=== PATIENT | female | born 1975 | race Caucasian/White ===

== ENCOUNTER 2018-05-10 04:55 | Emergency (ER) | payer MEDICAID ==
[~2018-05-10] VITALS: Ht 180.3 cm; Wt 161.9 kg
[2018-05-10 05:01] VITALS: BP 131/88
[2018-05-10] MEDS ORDERED: KETOROLAC 60 MG/2 ML VIAL IM ONE (05:15)
[2018-05-10] MEDS ORDERED: HYDROcodone/APAP 10/325 MG 1 TAB TAB PO ONE (05:15)
[2018-05-10 06:20] VITALS: BP 139/84
[2018-05-10 06:24] LABS: APPEARANCE,URINE CLEAR (CLEAR); COLOR,URINE YELLOW (YELLOW); UGLUCOSE NEGATIVE (NEGATIVE)
[2018-05-10 06:25] LABS: BILIRUBIN,URINE NEGATIVE (NEGATIVE); BLOOD, URINE NEGATIVE (NEGATIVE); LEUKOCYTE ESTERASE ,URINE NEGATIVE (NEGATIVE); NITRITE, URINE NEGATIVE (NEGATIVE); RBC,URINE 0-5 (RARE) /HPF (0-5); WBC,URINE 0-5 (RARE) /HPF (0-5)
== END 2018-05-10 06:20 | disposition home or self-care (01) ==
LOC: MED 04:55
DX: G89.29 Other chronic pain (principal); M54.5 Low back pain
CPT/HCPCS: 81001; 81025; 96372; 99283; J1885

== ENCOUNTER 2018-05-18 09:48 | Emergency (ER) | payer MEDICAID ==
[~2018-05-18] VITALS: Ht 180.3 cm; Wt 131.5 kg
[2018-05-18 10:05] VITALS: BP 147/117
== END 2018-05-18 11:10 | disposition home or self-care (01) ==
LOC: MED 09:48
DX: G89.29 Other chronic pain (principal); M54.6 Pain in thoracic spine; M54.5 Low back pain; I10 Essential (primary) hypertension; E78.5 Hyperlipidemia, unspecified
CPT/HCPCS: 99283

== ENCOUNTER 2019-03-26 14:32 | Emergency (ER) | payer MEDICAID ==
[~2019-03-26] VITALS: Ht 175.3 cm; Wt 160.6 kg
[2019-03-26 14:34] VITALS: BP 115/93
[2019-03-26] MEDS ORDERED: KETOROLAC 60 MG/2 ML VIAL IM ONE (14:45)
[2019-03-26 15:22] VITALS: BP 121/81
== END 2019-03-26 15:22 | disposition home or self-care (01) ==
LOC: MED 14:32
DX: J06.9 Acute upper respiratory infection, unspecified (principal); M54.9 Dorsalgia, unspecified; G89.29 Other chronic pain; I10 Essential (primary) hypertension; E78.00 Pure hypercholesterolemia, unspecified; Z98.890 Other specified postprocedural states
CPT/HCPCS: 96372; 99283; J1885

== ENCOUNTER 2019-04-25 11:03 | Emergency (ER) | payer MEDICAID ==
[~2019-04-25] VITALS: Ht 180.3 cm; Wt 159.2 kg
[2019-04-25 11:09] VITALS: BP 141/87
--- NOTE | 2019-04-25 11:16 | NUR ---
Patient ambulated to bed 9. RN evaluating patient at bedside.
--- NOTE | 2019-04-25 11:26 | NUR ---
PT PRESENTS TO ED WITH C/O PAIN TO LOWER BACK, ELBOWS, KNEES RADIATING TO FEET, AND BREAST IMPLANT. PT REPORTS PAIN IS 10/10 AND STATES "IT FEELS LIKE IT HURTS". PT STATES "I HAD A BACK INJURY LIKE 8 MONTHS AGO...MAYBE IT WAS 1 YEAR, I DONT REMEMBER". PT STATES THAT SHE RAN OUT OF PAIN MEDICATION 3 DAYS AGO AND COMES TO THE ED FOR A MEDICATION REFILL. FAMILY MEMBER AT BEDSIDE. ER MD TO SEE PT. CRISTI HX: DM, HTN, ASTHMA
--- NOTE | 2019-04-25 12:00 | NUR ---
PT SEEN ATTEMPTING TO LEAVE FACILITY. PT STATES "ITS TAKING TO LONG TO SEE ME".
--- NOTE | 2019-04-25 12:04 | NUR ---
PATIENT LEFT WITHOUT BEING SEEN BY DR. LEIGH. NO FURTHER CARE PROVIDED FOR PATIENT.
[2019-04-25 12:07] VITALS: BP 141/87
== END 2019-04-25 12:06 | disposition left against medical advice (07) ==
LOC: MED 11:03
DX: Z53.21 Procedure and treatment not carried out due to patient leaving prior to being seen by health care provider (principal)

== ENCOUNTER 2019-04-27 18:51 | Emergency (ER) | payer MEDICAID ==
[~2019-04-27] VITALS: Ht 175.3 cm; Wt 158.8 kg
[2019-04-27 19:00] VITALS: BP 139/79
--- NOTE | 2019-04-27 19:18 | NUR ---
PT TO LOBBY VSS, EKG DONE.
--- NOTE | 2019-04-27 20:21 | NUR ---
PT AMBULATED TO BED 5
--- NOTE | 2019-04-27 20:54 | NUR ---
43 Y/O TRANSGENDER MALE BIB AMBULANCE. PRESENTS TO ED, C/O OF CHEST PAIN 01/28, EPISGASTRIC REGION. PT STATES PAIN STARTED 2 DAYS AGO; WORSENED TODAY. DOES NOT RADIATE. PT DENIES TAKING ANY MEDICATIONS FOR PAIN. PT TAKES HORMONES; "20 PLUS YEARS". PT STABLE. ERMD AWARE. WILL CONTINUE TO MONITOR.
[2019-04-27 22:25] VITALS: BP 133/79
--- NOTE | 2019-04-27 22:25 | NUR ---
PT DISCHARGED BY DR CODY, PAPERWORK PROVIDED. NO MEDICATION RX GIVEN. EDUCATED PT REGARDING D/C DIAGNOSIS AND INSTRUCTIONS. PT VERBALIZED UNDERSTANDING OF TEACHING. TOLD PT TO FOLLOW UP WITH PCP AND WHEN TO RETURN TO ED. PT VSS. ALL QUESTIONS ANSWERED.
== END 2019-04-27 22:25 | disposition home or self-care (01) ==
LOC: MED 18:51
DX: F41.9 Anxiety disorder, unspecified (principal); R10.13 Epigastric pain; I10 Essential (primary) hypertension; E78.5 Hyperlipidemia, unspecified
CPT/HCPCS: 93005; 99283

== ENCOUNTER 2020-05-01 15:19 | Emergency (ER) | payer MEDICAID ==
[~2020-05-01] VITALS: Ht 180.3 cm; Wt 158.8 kg
[2020-05-01 15:20] VITALS: BP 162/109
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
[2020-05-01] MEDS ORDERED: KETOROLAC 60 MG/2 ML VIAL IM ONE (15:55)
[2020-05-01 16:21] VITALS: BP 135/90
--- NOTE | 2020-05-01 16:21 | NUR ---
Patient discharged with v/s stable. Written and verbal after care instructions given and explained. Patient alert, oriented and verbalized understanding of instructions. Ambulatory with steady gait. All questions addressed prior to discharge. ID band removed. Patient advised to follow up with PMD. Rx of Bingen 5mg-325mg given. Patient educated on indication of medication including possible reaction and side effects. Opportunity to ask questions provided and answered.
== END 2020-05-01 16:21 | disposition home or self-care (01) ==
LOC: MED 15:19
DX: G89.29 Other chronic pain (principal); M54.5 Low back pain; I10 Essential (primary) hypertension; F41.9 Anxiety disorder, unspecified; F17.210 Nicotine dependence, cigarettes, uncomplicated; R73.03 Prediabetes; Z98.82 Breast implant status
CPT/HCPCS: 81002; 96372; 99283; J1885

== ENCOUNTER 2021-03-20 12:41 | Emergency (ER) | payer MEDICAID ==
[~2021-03-20] VITALS: Ht 180.3 cm; Wt 158.8 kg
[2021-03-20 12:50] VITALS: BP 136/81
--- NOTE | 2021-03-20 12:57 | NUR ---
PATIENT WAITING IN TENT TO BE SEEN BY JIMI
--- NOTE | 2021-03-20 12:59 | NUR ---
C/O BODY ACHES X 2 DAYS + HEADACHE AND SNEEZING. PATIENT STATES SHE IS SLIGHTLY SOB, BUT NO RESP DISTRES OBSERVED. PT IS COVID VACCINATED WITH NO EXPOSURE TO COVID + PEOPLE. RESP EVEN AND UNLABORED. DENIES N/V/D. NO PMH NKDA
[2021-03-20] MEDS ORDERED: PROM118S5 PO (13:21)
[2021-03-20] MEDS ORDERED: TAM75 PO (13:21)
[2021-03-20] MEDS ORDERED: ACET-10509 PO (13:21)
[2021-03-20] MEDS ORDERED: BENZ1LOZ98 PO (13:21)
--- NOTE | 2021-03-20 13:32 | NUR ---
COVID PCR & FLU SWABS DONE.
[2021-03-20 13:40] VITALS: BP 136/81
--- NOTE | 2021-03-20 13:41 | NUR ---
Patient discharged with v/s stable. Written and verbal after care instructions given and explained. Patient alert, oriented and verbalized understanding of instructions. Ambulatory with steady gait. All questions addressed prior to discharge. ID band removed. Patient advised to follow up with PMD. Rx of TAMIFLU, ACETAMINOPHEN, PROMETHAZINE given. Patient educated on indication of medication including possible reaction and side effects. Opportunity to ask questions provided and answered.
== END 2021-03-20 13:41 | disposition home or self-care (01) ==
LOC: MED 12:41
DX: B34.9 Viral infection, unspecified (principal); Z20.822 Contact with and (suspected) exposure to COVID-19; I10 Essential (primary) hypertension; Z79.899 Other long term (current) drug therapy
CPT/HCPCS: 87804; 99283; U0003

== ENCOUNTER 2022-09-21 12:23 | Emergency (ER) | payer MEDICAID ==
[~2022-09-21 12:23] MED LIST: ACET-10509 PO; BENZ-300 PO; PROM118S5 PO; TAM75 PO
--- NOTE | 2022-09-21 12:42 | NUR ---
NO ANSWER X1
--- NOTE | 2022-09-21 13:03 | NUR ---
NO ANSWER X 2
--- NOTE | 2022-09-21 20:48 | NUR ---
Pt left without being seen
== END 2022-09-21 20:48 | disposition left against medical advice (07) ==
LOC: MED 12:23
DX: M79.606 Pain in leg, unspecified (principal); M54.9 Dorsalgia, unspecified; Z53.21 Procedure and treatment not carried out due to patient leaving prior to being seen by health care provider